=== PATIENT | male | born 1970 | race Caucasian/White ===

== ENCOUNTER 2021-11-09 13:54 | Emergency (ER) | payer OTHER ==
[~2021-11-09] VITALS: Ht 182.9 cm; Wt 140.6 kg
[2021-11-09] MEDS ORDERED: DILT30 (14:17)
[2021-11-09] MEDS ORDERED: PRAV20 (14:17)
[2021-11-09] MEDS ORDERED: XARELTO20 MG (14:17)
[2021-11-09] MEDS ORDERED: Lisinopril2.5 MG (14:17)
[2021-11-09] MEDS ORDERED: METF500 (14:17)
[2021-11-09 14:43] LABS: BASOPHILS ABSOLUTE AUTO 0.05 K/mm3 (0.00-0.23); BASOPHILS PERCENT AUTO 1 % (0-2); EOSINOPHILS ABSOLUTE AUTO 0.21 K/mm3 (0.00-0.68); EOSINOPHILS PERCENT AUTO 4 % (0-6); Hematocrit 43.6 % (37.0-53.0); Hemoglobin 14.6 g/dL (13.5-17.5); IMMATURE GRAN PERCENT AUTO 0 % (0-1); LYMPHOCYTES ABSOLUTE AUTO 1.41 K/mm3 (0.84-5.20); LYMPHOCYTES PERCENT AUTO 24 % (21-46); MONOCYTES ABSOLUTE AUTO 0.58 K/mm3 (0.16-1.47); MONOCYTES PERCENT AUTO 10 % (4-13); Mean Corpuscular HGB 28.6 pg (26.0-34.0); Mean Corpuscular HGB Conc 33.5 g/dL (31.5-36.5); Mean Corpuscular Volume 85 fL (80-100); Mean Platelet Volume 9.2 fL (9.1-12.4); NEUTROPHILS ABSOLUTE AUTO 3.64 K/mm3 (1.96-9.15); NEUTROPHILS PERCENT AUTO 62 % (41-73); Platelet Count 230 K/mm3 (150-400); RDW Coefficient Variation 15.1 % (11.7-14.2); RDW Standard Deviation 46.2 fL (35.1-46.3); Red Blood Cell Count 5.11 M/mm3 (4.30-5.90); White Blood Cell Count 5.89 K/mm3 (4.00-11.30)
[2021-11-09 15:03] LABS: Alanine Aminotransfer (ALT/SGP 26 U/L (12-78); Albumin, Blood 3.6 g/dL (3.4-5.0); Albumin/Globulin Ratio 0.9 (0.8-1.8); Alk Phos 69 U/L (50-136); Anion Gap 6 mmol/L (6-16); Aspartate Aminotrans (AST/SGOT 15 U/L (12-37); Bilirubin, Total 0.7 mg/dL (0.1-1.0); Blood Urea Nitrogen 18 mg/dL (8-24); Bun/Creatinine Ratio 15.1 (12.0-20.0); CO2, Blood 25 mmol/L (21-32); Calcium, Blood 8.6 mg/dL (8.5-10.1); Chloride, Blood 109 mmol/L (98-108); Creatinine, Blood 1.19 mg/dL (0.60-1.20); Globulin, Blood 3.8 g/dL (2.2-4.0); Glomerular Filtration Rate >60 (60-); Glucose, Blood 209 mg/dL (70-99); Potassium, Blood 4.3 mmol/L (3.5-5.5); Sodium, Blood 140 mmol/L (136-145); Total Protein, Blood 7.4 g/dL (6.4-8.2)
[2021-11-09 15:31] LABS: Source, Urine Clean Catch
[2021-11-09 15:36] LABS: Bilirubin, Urine Neg (Neg); Blood, Urine 5+ (Neg); Glucose Qualitative, Urine Neg (Neg); Ketones, Urine Neg (Neg); Leukocyte Esterase, Urine Neg (Neg); Nitrite, Urine Neg (Neg); Protein, Urine 2+ (Neg); Specific Gravity, Urine 1.015 (1.003-1.022); Urobilinogen, Urine NORM (Normal)
[2021-11-09 15:39] LABS: Appearance, Urine Clear (Clear); Color, Urine Pale Yellow (P-Yellow)
[2021-11-09 15:40] LABS: Bacteria Few /hpf; Red Blood Cells, Urine 25-50 /hpf (0-2); Squamous Epithelial Cells Rare /hpf (Few); White Blood Cells, Urine 0-2 /hpf (0-5)
[2021-11-09] MEDS ORDERED: Percocet 5-3251 EACH PO (17:00)
[2021-11-09] MEDS ORDERED: ONDA4ODT MM (17:00)
[2021-11-09] MEDS ORDERED: TAMS.4ER PO (17:45)
[2021-11-09] MEDS ORDERED: CIPR500 PO (17:51)
[2021-11-10] MEDS ORDERED: Flomax0.4 MG PO (17:41)
== END 2021-11-09 18:15 | disposition home or self-care (01) ==
LOC: ER 13:54
PROVIDERS: Physician Assistant
DX: N13.2 Hydronephrosis with renal and ureteral calculous obstruction (principal); I48.91 Unspecified atrial fibrillation; E78.5 Hyperlipidemia, unspecified; E11.9 Type 2 diabetes mellitus without complications; Z79.84 Long term (current) use of oral hypoglycemic drugs; Z79.899 Other long term (current) drug therapy
CPT/HCPCS: 74177; 80053; 81001; 83690; 85025; 87086; 93005; 93010; 96374-59; 96375; 99284-25; A9270; J1170; J2405; J7030; Q9967

== ENCOUNTER 2021-11-10 14:51 | Emergency (ER) | payer OTHER ==
[~2021-11-10] VITALS: Ht 182.9 cm; Wt 140.6 kg
[~2021-11-10 14:51] MED LIST: CIPR500 PO; DILT30; Lisinopril2.5 MG; METF500; ONDA4ODT MM; PRAV20; Percocet 5-3251 EACH PO; TAMS.4ER PO; XARELTO20 MG
[2021-11-10 15:36] LABS: BASOPHILS ABSOLUTE AUTO 0.03 K/mm3 (0.00-0.23); BASOPHILS PERCENT AUTO 0 % (0-2); EOSINOPHILS ABSOLUTE AUTO 0.16 K/mm3 (0.00-0.68); EOSINOPHILS PERCENT AUTO 2 % (0-6); Hematocrit 43.6 % (37.0-53.0); Hemoglobin 14.5 g/dL (13.5-17.5); IMMATURE GRAN ABSOLUTE AUTO 0.01 K/mm3 (0.00-0.10); IMMATURE GRAN PERCENT AUTO 0 % (0-1); LYMPHOCYTES ABSOLUTE AUTO 0.99 K/mm3 (0.84-5.20); LYMPHOCYTES PERCENT AUTO 14 % (21-46); MONOCYTES ABSOLUTE AUTO 0.62 K/mm3 (0.16-1.47); MONOCYTES PERCENT AUTO 9 % (4-13); Mean Corpuscular HGB 28.6 pg (26.0-34.0); Mean Corpuscular HGB Conc 33.3 g/dL (31.5-36.5); Mean Corpuscular Volume 86 fL (80-100); NEUTROPHILS ABSOLUTE AUTO 5.33 K/mm3 (1.96-9.15); NEUTROPHILS PERCENT AUTO 75 % (41-73); Platelet Count 206 K/mm3 (150-400); RDW Coefficient Variation 15.1 % (11.7-14.2); RDW Standard Deviation 46.5 fL (35.1-46.3); Red Blood Cell Count 5.07 M/mm3 (4.30-5.90); White Blood Cell Count 7.14 K/mm3 (4.00-11.30)
[2021-11-10 15:55] LABS: Albumin, Blood 3.7 g/dL (3.4-5.0); Bilirubin, Total 0.9 mg/dL (0.1-1.0); Bun/Creatinine Ratio 10.5 (12.0-20.0); Calcium, Blood 8.5 mg/dL (8.5-10.1); Creatinine, Blood 1.33 mg/dL (0.60-1.20); Globulin, Blood 3.6 g/dL (2.2-4.0); Potassium, Blood 4.6 mmol/L (3.5-5.5); Total Protein, Blood 7.3 g/dL (6.4-8.2)
[2021-11-10] MEDS ORDERED: Flomax0.4 MG PO (17:41)
== END 2021-11-10 17:55 | disposition home or self-care (01) ==
LOC: ER 14:51
PROVIDERS: Physician Assistant
DX: N13.2 Hydronephrosis with renal and ureteral calculous obstruction (principal); E11.9 Type 2 diabetes mellitus without complications; I48.91 Unspecified atrial fibrillation; E78.5 Hyperlipidemia, unspecified; Z79.899 Other long term (current) drug therapy
CPT/HCPCS: 36415; 80053; 83690; 85025; 96374; 96375; 99284-25; J1170; J1885; J2405; J7030